=== PATIENT | male | born 1970 | race African-American/Black ===

== ENCOUNTER 2017-06-01 05:26 | Day surgery (SDC) | payer MEDICAID ==
[~2017-06-01] VITALS: Ht 162.6 cm; Wt 61.4 kg
[~2017-06-01 05:26] MED LIST: ACETIC ACID AU; ALEN70TA48 PO; ALUM AU; ASCO500 PO; ASPI-1093 PO; CARB-60 PO; DEXT1DRO8 OU; DOCU250C91 PO; FERR-89 PO; FOLI1 PO; LISI-662 PO; MELO-273 PO; MULT-248 PO; OS CAL PO; PHEN97.29 PO; PSYL0.4C2 PO; SORBITOL 70% PO; VIT D PO; VITA400T9 PO
[2017-06-01] MEDS ORDERED: RINGERS SOLUTION,LACTATED 1,000 ML IV ONE ×2 (05:58→09:00)
[2017-06-01 06:52] LABS: EOSINOPHILS % (AUTO) 5.9 % (1.0-6.0); HEMATOCRIT 36.4 % (41-53); HEMOGLOBIN 11.9 g/dL (13.5-17.5); LYMPHOCYTES % (AUTO) 12.6 % (22.0-44.0); MEAN CORPUSCULAR HEMOGLOBIN 25.7 pg (26.0-34.0); MEAN CORPUSCULAR HGB CONC 32.8 G/dL (31.0-37.0); MEAN CORPUSCULAR VOLUME 79 fL (80-100); MONOCYTES # (AUTO) 0.8 K/uL (0.1-1.0); MONOCYTES % (AUTO) 10.2 % (2.0-9.0); NEUTROPHILS # (AUTO) 5.3 K/uL (1.8-7.7); NEUTROPHILS % (AUTO) 70.3 % (40.0-70.0); PLATELET COUNT (AUTO) 297 K/uL (150-450); RED BLOOD CELL COUNT(AUTO) 4.64 MIL/uL (4.50-5.90); RED CELL DISTRIBUTION WIDTH 14.9 % (11.5-14.5); WHITE BLOOD COUNT (AUTO) 7.6 K/uL (4.5-11.0)
[2017-06-01 07:03] LABS: INR 1.2 (0.9-1.1); PROTHROMBIN TIME 12.2 SEC (9.4-11.6)
[2017-06-01 07:08] LABS: ALANINE AMINOTRANSFERASE 27 U/L (12-78); ALBUMIN 3.8 g/dL (3.4-5.0); ANION GAP 8 mmol/L (8-16); ASPARTATE AMINOTRANSFERASE 15 U/L (15-37); BILIRUBIN,TOTAL 0.4 mg/dL (0.1-1.0); CALCIUM, TOTAL 9.3 mg/dL (8.8-10.5); CARBON DIOXIDE 27 mmol/L (22-29); CHLORIDE 99 mmol/L (98-107); CREATININE 0.56 mg/dL (0.60-1.30); GLOMERULAR FILTR. RATE CALC > 60 mL/min (>60); PHENOBARBITAL 36 mcg/mL (15-40); POTASSIUM 4.1 mmol/L (3.5-5.1); SODIUM SERUM 134 mmol/L (136-145); TOTAL PROTEIN, SERUM 8.4 g/dL (6.4-8.2); UREA NITROGEN, BLOOD 10 mg/dL (7-18)
== END 2017-06-01 09:30 | disposition short-term general hospital (02) ==
LOC: SURGERY 05:26
PROVIDERS: ATTEND Dentist General Practice
DX: K05.6 Periodontal disease, unspecified (principal); Z53.8 Procedure and treatment not carried out for other reasons; R78.89 Finding of other specified substances, not normally found in blood; R94.31 Abnormal electrocardiogram [ECG] [EKG]; D64.9 Anemia, unspecified; I45.10 Unspecified right bundle-branch block; I10 Essential (primary) hypertension; Z79.01 Long term (current) use of anticoagulants
CPT/HCPCS: 36415; 71010; 80053; 80156; 80184; 85025; 85610; 85730; 93005; J7120

== ENCOUNTER 2018-03-06 06:16 | Day surgery (SDC) | payer OTHER ==
[~2018-03-06] VITALS: Ht 162.6 cm; Wt 61.4 kg
[~2018-03-06 06:16] MED LIST changes: +ACET650S27 PR; -ACETIC ACID AU; -ALUM AU; -ASPI-1093 PO; +BISA10S PR; +ESOM20CA31 PO; +FE RC; +GUAIF10 PO; +LEVO25TA9 PO; +MAG30ORA11 PO; -MELO-273 PO; +NEO/5DRO4 OU; -OS CAL PO; +OSCD250 PO; +PHEN118S38 PO; +PSEU60 PO; +RINGERS SOLUTION,LACTATED 1,000 ML IV ONE; -SORBITOL 70% PO; +SUCR1TAB PO; +TRAM50TA4 PO; -VIT D PO; +VITAD1000 PO; +[UNRECOGNIZED DRUG - CODE] AU; +[UNRECOGNIZED DRUG - CODE] PO; +[UNRECOGNIZED DRUG - CODE] PO; +[UNRECOGNIZED DRUG - CODE] PO; +[UNRECOGNIZED DRUG - OTHER] PO
[2018-03-06] MEDS ORDERED: ROCURONIUM BROMIDE 10 MG/ML 5 ML VIAL IVP ONE (06:17)
[2018-03-06] MEDS ORDERED: EPHEDrine SULFATE 50 MG/ML VIAL IM ONE (06:17)
[2018-03-06] MEDS ORDERED: 0.9% SODIUM CHLORIDE 10 ML VIAL IVP ONE (06:17)
[2018-03-06] MEDS ORDERED: PROPOFOL 1% 20 ML VIAL IVP ONE (06:17)
[2018-03-06 07:04] LABS: BASOPHILS % (AUTO) 1.1 % (0.0-2.0); EOSINOPHILS % (AUTO) 3.7 % (1.0-6.0); HEMATOCRIT 33.4 % (41-53); LYMPHOCYTES # (AUTO) 0.8 K/uL (1.0-4.8); LYMPHOCYTES % (AUTO) 12.9 % (22.0-44.0); MEAN CORPUSCULAR HEMOGLOBIN 25.5 pg (26.0-34.0); MEAN CORPUSCULAR HGB CONC 33.1 G/dL (31.0-37.0); MEAN CORPUSCULAR VOLUME 77 fL (80-100); MONOCYTES # (AUTO) 0.7 K/uL (0.1-1.0); MONOCYTES % (AUTO) 11.7 % (2.0-9.0); NEUTROPHILS # (AUTO) 4.1 K/uL (1.8-7.7); NEUTROPHILS % (AUTO) 70.6 % (40.0-70.0); PLATELET COUNT (AUTO) 274 K/uL (150-450); RED BLOOD CELL COUNT(AUTO) 4.34 MIL/uL (4.50-5.90); RED CELL DISTRIBUTION WIDTH 14.6 % (11.5-14.5)
[2018-03-06 07:15] LABS: ANION GAP 9 mmol/L (8-16); CALCIUM, TOTAL 9.5 mg/dL (8.8-10.5); CARBON DIOXIDE 26 mmol/L (22-29); CHLORIDE 99 mmol/L (98-107); GLOMERULAR FILTR. RATE CALC > 60 mL/min (>60); GLUCOSE,RANDOM 89 mg/dL (70-110); INR 1.1 (0.9-1.1); POTASSIUM 4.4 mmol/L (3.5-5.1); PROTHROMBIN TIME 11.3 SEC (9.4-11.6); SODIUM SERUM 134 mmol/L (136-145); UREA NITROGEN, BLOOD 15 mg/dL (7-18)
[2018-03-06 07:23] LABS: ALANINE AMINOTRANSFERASE 22 U/L (12-78); ALBUMIN 3.9 g/dL (3.4-5.0); ALKALINE PHOSPHATASE 121 U/L (46-116); ASPARTATE AMINOTRANSFERASE 13 U/L (15-37); BILIRUBIN,TOTAL 0.4 mg/dL (0.1-1.0); PHENOBARBITAL 43 mcg/mL (15-40); TOTAL PROTEIN, SERUM 9.3 g/dL (6.4-8.2)
[2018-03-06 07:32] LABS: CARBAMAZEPINE (TEGRETOL) 16.8 mcg/mL (4.0-12.0)
[2018-03-06] MEDS ORDERED: AMPICILLIN SODIUM 1 GM/VIAL ONE (10:04)
[2018-03-06] MEDS ORDERED: OXYMETAZOLINE HCL 0.05% 15 ML NASAL SPRAY NASAL ONE (10:11)
[2018-03-06] MEDS ORDERED: FentaNYL CITRATE-PF 100 MCG/2 ML VIAL IVP PRN ×3 (11:00)
[2018-03-06] MEDS ORDERED: MIDAZOLAM HCL 2 MG/2 ML VIAL IVP PRN (11:00)
[2018-03-06] MEDS ORDERED: ONDANSETRON HCL 4 MG/2 ML VIAL IVP PRN (11:00)
[2018-03-06] MEDS ORDERED: RINGERS SOLUTION,LACTATED 1,000 ML IV ONE (11:26)
[2018-03-06] MEDS ORDERED: FentaNYL CITRATE-PF 100 MCG/2 ML VIAL IVP ONE (12:00)
[2018-03-06] MEDS ORDERED: MIDAZOLAM HCL 2 MG/2 ML VIAL IVP ONE (12:00)
== END 2018-03-06 13:40 | disposition home or self-care (01) ==
LOC: SURGERY 06:16
PROVIDERS: ATTEND Dentist General Practice
DX: K05.30 Chronic periodontitis, unspecified (principal); F71 Moderate intellectual disabilities; G80.8 Other cerebral palsy; I10 Essential (primary) hypertension; K21.9 Gastro-esophageal reflux disease without esophagitis; C90.00 Multiple myeloma not having achieved remission; E03.9 Hypothyroidism, unspecified; E87.1 Hypo-osmolality and hyponatremia; I70.8 Atherosclerosis of other arteries; I44.0 Atrioventricular block, first degree; I45.19 Other right bundle-branch block; M19.90 Unspecified osteoarthritis, unspecified site; Z79.82 Long term (current) use of aspirin; Z79.01 Long term (current) use of anticoagulants; Z98.890 Other specified postprocedural states; Z79.899 Other long term (current) drug therapy
CPT/HCPCS: 36415; 41899; 71045; 80053; 80156; 80184; 85025; 85610; 85730; J0290; J2250; J2704; J3010; J3490 ×2; J7120

== ENCOUNTER 2018-05-01 05:10 | Day surgery (SDC) | payer MEDICAID ==
[~2018-05-01] VITALS: Ht 157.5 cm; Wt 55.5 kg
[~2018-05-01 05:10] MED LIST changes: -RINGERS SOLUTION,LACTATED 1,000 ML IV ONE
[2018-05-01] MEDS ORDERED: RINGERS SOLUTION,LACTATED 500 ML IV ONE ×2 (05:34→06:00)
[2018-05-01] MEDS ORDERED: TETRACAINE HCL/PF 0.5% 4 ML OPHTHALMIC SOLUTION ONE (05:34)
[2018-05-01] MEDS ORDERED: OFLOXACIN 0.3% 5 ML OPHTHALMIC SOLUTION ONE (05:35)
[2018-05-01] MEDS ORDERED: OFLOXACIN 0.3% 5 ML OPHTHALMIC SOLUTION OD ONE (06:00)
[2018-05-01] MEDS ORDERED: ACETAMINOPHEN 325 MG TABLET PO PRN (07:00)
[2018-05-01] MEDS ORDERED: TETRACAINE HCL/PF 0.5% 4 ML OPHTHALMIC SOLUTION OD ONE (07:00)
[2018-05-01] MEDS ORDERED: MitoMYcin 0.2 MG/VIAL KIT FOR OPHTHALMIC USE OD ONE (07:00)
[2018-05-01] MEDS ORDERED: MIDAZOLAM HCL 2 MG/2 ML VIAL IVP ONE (12:00)
[2018-05-01] MEDS ORDERED: FentaNYL CITRATE-PF 100 MCG/2 ML VIAL IVP ONE (12:00)
[2018-05-01] MEDS ORDERED: PROPOFOL 1% 20 ML VIAL IVP ONE (12:50)
[2018-05-01] MEDS ORDERED: LIDOCAINE HCL/PF 2% 5 ML VIAL INJ ONE (12:50)
[2018-05-01] MEDS ORDERED: EPHEDrine SULFATE 50 MG/ML VIAL IM ONE (12:50)
[2018-05-01] MEDS ORDERED: LIDOCAINE HCL 2%/EPI 1:200,000/PF 10 ML VIAL ONE (16:37)
[2018-05-01] MEDS ORDERED: PHENYLEPHRINE HCL 2.5% 2 ML OPHTHALMIC SOLUTION ONE (16:37)
[2018-05-01] MEDS ORDERED: POVIDONE-IODINE 10% 15 ML SOLUTION UD ONE (16:37)
[2018-05-01] MEDS ORDERED: NEOMYCIN/POLYMYXIN B/DEXAMETH 3.5 GM OPHTHALMIC OINTMENT ONE (16:37)
[2018-05-01] MEDS ORDERED: PrednisoLONE ACETATE 1% 5 ML OPHTHALMIC SUSPENSION ONE (16:37)
== END 2018-05-01 08:40 | disposition home or self-care (01) ==
LOC: SURGERY 05:10
PROVIDERS: ATTEND Ophthalmology
DX: H11.041 Peripheral pterygium, stationary, right eye (principal); I10 Essential (primary) hypertension; E03.9 Hypothyroidism, unspecified; M19.90 Unspecified osteoarthritis, unspecified site; K21.9 Gastro-esophageal reflux disease without esophagitis; G80.8 Other cerebral palsy; F71 Moderate intellectual disabilities; I45.19 Other right bundle-branch block; Z79.01 Long term (current) use of anticoagulants; Z79.82 Long term (current) use of aspirin; Z79.891 Long term (current) use of opiate analgesic; Z79.899 Other long term (current) drug therapy; Z98.890 Other specified postprocedural states
CPT/HCPCS: 65426; 88304; J2250; J2704; J3010; J3490 ×2; J7120

== ENCOUNTER 2019-04-18 05:31 | Day surgery (SDC) | payer OTHER, MEDICAID ==
[~2019-04-18] VITALS: Ht 162.6 cm; Wt 63.6 kg
[~2019-04-18 05:31] MED LIST changes: +ALEN70TA10 PO; -ALEN70TA48 PO
[2019-04-18] MEDS ORDERED: DEXAMETHASONE SOD PHOS 4 MG/ML VIAL IVP ONE (05:32)
[2019-04-18] MEDS ORDERED: ROCURONIUM BROMIDE 10 MG/ML 5 ML VIAL IVP ONE (05:32)
[2019-04-18] MEDS ORDERED: PROPOFOL 1% 20 ML VIAL IVP ONE (05:32)
[2019-04-18] MEDS ORDERED: ONDANSETRON HCL 4 MG/2 ML VIAL IVP ONE (05:32)
[2019-04-18] MEDS ORDERED: LIDOCAINE/PF 2% 5 ML VIAL IM ONE (05:32)
[2019-04-18] MEDS ORDERED: NEOSTIGMINE METHYLSULFATE 1 MG/ML 10 ML VIAL IVP ONE (05:32)
[2019-04-18] MEDS ORDERED: FentaNYL CITRATE-PF 100 MCG/2 ML VIAL IVP ONE (05:32)
[2019-04-18] MEDS ORDERED: RINGERS SOLUTION,LACTATED 1,000 ML IV ONE ×2 (06:00→06:30)
[2019-04-18 06:22] LABS: BASOPHILS % (AUTO) 0.9 % (0.0-2.0); EOSINOPHILS % (AUTO) 3.3 % (1.0-6.0); HEMATOCRIT 33.9 % (41-53); HEMOGLOBIN 10.9 g/dL (13.5-17.5); LYMPHOCYTES # (AUTO) 1.1 K/uL (1.0-4.8); LYMPHOCYTES % (AUTO) 11.7 % (22.0-44.0); MEAN CORPUSCULAR HEMOGLOBIN 24.3 pg (26.0-34.0); MEAN CORPUSCULAR HGB CONC 32.1 G/dL (31.0-37.0); MEAN CORPUSCULAR VOLUME 76 fL (80-100); MONOCYTES # (AUTO) 0.8 K/uL (0.1-1.0); MONOCYTES % (AUTO) 9.1 % (2.0-9.0); NEUTROPHILS # (AUTO) 6.8 K/uL (1.8-7.7); PLATELET COUNT (AUTO) 344 K/uL (150-450); RED BLOOD CELL COUNT(AUTO) 4.48 MIL/uL (4.50-5.90); RED CELL DISTRIBUTION WIDTH 14.5 % (11.5-14.5)
[2019-04-18 06:35] LABS: ANION GAP 9 mmol/L (8-16); CALCIUM, TOTAL 9.6 mg/dL (8.8-10.5); CARBON DIOXIDE 25 mmol/L (22-29); CHLORIDE 98 mmol/L (98-107); CREATININE 0.63 mg/dL (0.60-1.30); GLOMERULAR FILTR. RATE CALC > 60 mL/min (>60); GLUCOSE,RANDOM 83 mg/dL (70-110); POTASSIUM 4.1 mmol/L (3.5-5.1); SODIUM SERUM 132 mmol/L (136-145); UREA NITROGEN, BLOOD 14 mg/dL (7-18)
[2019-04-18 06:37] LABS: INR 1.1 (0.9-1.1); PROTHROMBIN TIME 11.1 SEC (9.4-11.6)
[2019-04-18] MEDS ORDERED: AMPICILLIN SODIUM 1 GM/VIAL ONE (08:00)
[2019-04-18] MEDS ORDERED: SUGAMMADEX SODIUM 200 MG/2 ML VIAL IVP ONE (08:38)
[2019-04-18] MEDS ORDERED: SODIUM CHLORIDE 0.9% 1,000 ML IV ONE ×2 (08:45→09:42)
[2019-04-18] MEDS ORDERED: SODIUM CHLORIDE 0.9% 100 ML ONE (09:07)
== END 2019-04-18 13:05 | disposition home or self-care (01) ==
LOC: SURGERY 05:31
PROVIDERS: ATTEND Dentist General Practice
DX: K05.30 Chronic periodontitis, unspecified (principal); K02.9 Dental caries, unspecified; I10 Essential (primary) hypertension; D64.9 Anemia, unspecified; E03.9 Hypothyroidism, unspecified; K21.9 Gastro-esophageal reflux disease without esophagitis; I69.954 Hemiplegia and hemiparesis following unspecified cerebrovascular disease affecting left non-dominant side; G40.909 Epilepsy, unspecified, not intractable, without status epilepticus; Z79.01 Long term (current) use of anticoagulants; Z98.890 Other specified postprocedural states
CPT/HCPCS: 36415; 41899; 71045; 80048; 85025; 85610; 85730; 93005; J0290; J1100; J2405; J2704; J3010; J3490 ×2; J7030; J7050; J7120

== ENCOUNTER 2022-11-24 06:24 | Day surgery (SDC) | payer OTHER, MEDICAID ==
[~2022-11-24] VITALS: Ht 162.6 cm; Wt 68.1 kg
[~2022-11-24 06:24] MED LIST changes: +ACET650S24 PR; -ACET650S27 PR; -ALEN70TA10 PO; +ALEN70TA65 PO; -BISA10S PR; +BISA10SU11 PR; +CHOL100018 PO; +DOCU-350 PO; -DOCU250C91 PO; -FE RC; -FERR-89 PO; +FERR325T27 PO; +FOLI-130 PO; -FOLI1 PO; -LISI-662 PO; +LISI-894 PO; +NA P266E RC; +PSEU-221 PO; -PSEU60 PO; +TRAM-559 PO; -TRAM50TA4 PO; -VITAD1000 PO; +[UNRECOGNIZED DRUG - CODE] PO; -[UNRECOGNIZED DRUG - CODE] PO
[2022-11-24] MEDS ORDERED: PROPOFOL 1% 20 ML VIAL IVP ONE (06:25)
[2022-11-24] MEDS ORDERED: ROCURONIUM BROMIDE 10 MG/ML 5 ML VIAL IVP ONE (06:25)
[2022-11-24] MEDS ORDERED: METOCLOPRAMIDE HCL 5 MG/ML 2 ML VIAL IVP ONE (06:25)
[2022-11-24] MEDS ORDERED: DEXAMETHASONE SOD PHOS 4 MG/ML VIAL IVP ONE (06:25)
[2022-11-24] MEDS ORDERED: LIDOCAINE/PF 2% 5 ML VIAL IM ONE (06:25)
[2022-11-24] MEDS ORDERED: ONDANSETRON HCL 4 MG/2 ML VIAL IVP ONE (06:25)
[2022-11-24] MEDS ORDERED: RINGERS SOLUTION,LACTATED 1,000 ML IV ONE ×2 (06:30→07:44)
[2022-11-24 07:21] LABS: COVID AG,FIA SOURCE NASAL SWAB
[2022-11-24] MEDS ORDERED: LEVE500T20 PO (08:16)
[2022-11-24] MEDS ORDERED: ARIP10TA38 PO (08:19)
[2022-11-24 08:56] LABS: ANION GAP 7 mmol/L (8-16); CALCIUM, TOTAL 9.2 mg/dL (8.8-10.5); CARBON DIOXIDE 24 mmol/L (22-29); CHLORIDE 103 mmol/L (98-107); CREATININE 0.55 mg/dL (0.60-1.30); GLOMERULAR FILTR. RATE CALC > 60 mL/min (>60); GLUCOSE,RANDOM 91 mg/dL (70-110); POTASSIUM 4.2 mmol/L (3.5-5.1); SODIUM SERUM 134 mmol/L (136-145); UREA NITROGEN, BLOOD 12 mg/dL (7-18)
[2022-11-24 09:01] LABS: ALANINE AMINOTRANSFERASE 26 U/L (12-78); ALBUMIN 3.5 g/dL (3.4-5.0); ALKALINE PHOSPHATASE 132 U/L (46-116); ASPARTATE AMINOTRANSFERASE 21 U/L (15-37); BILIRUBIN,TOTAL 0.2 mg/dL (0.1-1.0); TOTAL PROTEIN, SERUM 8.7 g/dL (6.4-8.2)
[2022-11-24 09:03] LABS: HEMATOCRIT 31.8 % (41-53); HEMOGLOBIN 10.4 g/dL (13.5-17.5); MEAN CORPUSCULAR HEMOGLOBIN 24.3 pg (26.0-34.0); MEAN CORPUSCULAR HGB CONC 32.6 G/dL (31.0-37.0); MEAN CORPUSCULAR VOLUME 74 fL (80-100); PLATELET COUNT (AUTO) 252 K/uL (150-450); RED BLOOD CELL COUNT(AUTO) 4.28 MIL/uL (4.50-5.90)
[2022-11-24 09:26] LABS: INR 1.1 (0.9-1.1); PROTHROMBIN TIME 11.9 SEC (9.4-11.6)
[2022-11-24 09:38] LABS: BAND NEUTROPHILS % (MANUAL) 3 % (0-5); LYMPHOCYTES % (MANUAL) 14 % (22-44); MONOCYTES % (MANUAL) 8 % (2-9); SEGMENTED NEUTROPHILS % 75 % (40-70)
[2022-11-24] MEDS ORDERED: AMPICILLIN SODIUM 2 GM/NS 100 ML IV ONE (10:09)
[2022-11-24] MEDS ORDERED: FentaNYL CITRATE PF 100 MCG/2 ML VIAL IVP PRN (14:15)
[2022-11-24] MEDS ORDERED: OXYGEN THERAPY IH SCH (20:00)
== END 2022-11-24 15:30 | disposition home or self-care (01) ==
LOC: SURGERY 06:24
PROVIDERS: ATTEND Dentist General Practice
DX: K02.9 Dental caries, unspecified (principal); K05.30 Chronic periodontitis, unspecified; G40.909 Epilepsy, unspecified, not intractable, without status epilepticus; K05.6 Periodontal disease, unspecified; D64.9 Anemia, unspecified; I10 Essential (primary) hypertension; K21.9 Gastro-esophageal reflux disease without esophagitis; M19.90 Unspecified osteoarthritis, unspecified site; Z98.890 Other specified postprocedural states; Z79.899 Other long term (current) drug therapy; G80.0 Spastic quadriplegic cerebral palsy; Z79.01 Long term (current) use of anticoagulants; Z20.822 Contact with and (suspected) exposure to COVID-19
CPT/HCPCS: 41899; 71045; 87426; 80053; 85007; 85027; 85610; 85730; 36415; 93005; J0290; J2704; J1100; J3490 ×2; J2765; J2405; J7120; C9803

== ENCOUNTER 2024-10-17 05:55 | Day surgery (SDC) | payer OTHER, MEDICAID ==
[~2024-10-17] VITALS: Ht 162.6 cm; Wt 68.1 kg
[~2024-10-17 05:55] MED LIST changes: +ARIP10TA38 PO; -DOCU-350 PO; +DOCU-412 PO; +GUAI100L96 PO; -GUAIF10 PO; +LEVE-71 PO; +SORB30SO2 PO; -SUCR1TAB PO; +SUCR1TAB2 PO; -TRAM-559 PO; -[UNRECOGNIZED DRUG - CODE] PO
[2024-10-17] MEDS ORDERED: AMPICILLIN SODIUM 2 GM/NS 100 ML IV ONE (07:25)
[2024-10-17 07:43] LABS: BASOPHILS % (AUTO) 1.4 % (0.0-2.0); EOSINOPHILS % (AUTO) 7.3 % (1.0-6.0); HEMATOCRIT 34.4 % (41-53); HEMOGLOBIN 10.9 g/dL (13.5-17.5); LYMPHOCYTES # (AUTO) 0.7 K/uL (1.0-4.8); MEAN CORPUSCULAR HGB CONC 31.8 G/dL (31.0-37.0); MEAN CORPUSCULAR VOLUME 82 fL (80-100); MONOCYTES # (AUTO) 0.8 K/uL (0.1-1.0); MONOCYTES % (AUTO) 17.4 % (2.0-9.0); NEUTROPHILS # (AUTO) 2.8 K/uL (1.8-7.7); NEUTROPHILS % (AUTO) 58.9 % (40.0-70.0); PLATELET COUNT (AUTO) 140 K/uL (150-450); RED CELL DISTRIBUTION WIDTH 15.2 % (11.5-14.5); WHITE BLOOD COUNT (AUTO) 4.8 K/uL (4.5-11.0)
[2024-10-17 07:51] LABS: ANION GAP 4 mmol/L (8-16); CARBON DIOXIDE 28 mmol/L (22-29); CHLORIDE 104 mmol/L (98-107); CREATININE 0.55 mg/dL (0.60-1.30); GLOMERULAR FILTR. RATE CALC > 60 mL/min (>60); GLUCOSE,RANDOM 96 mg/dL (70-110); POTASSIUM 3.9 mmol/L (3.5-5.1); SODIUM SERUM 136 mmol/L (136-145); UREA NITROGEN, BLOOD 12 mg/dL (7-18)
[2024-10-17 07:57] LABS: ALANINE AMINOTRANSFERASE 33 U/L (12-78); ALBUMIN 3.5 g/dL (3.4-5.0); ALKALINE PHOSPHATASE 175 U/L (46-116); ASPARTATE AMINOTRANSFERASE 16 U/L (15-37); BILIRUBIN,TOTAL 0.4 mg/dL (0.1-1.0); TOTAL PROTEIN, SERUM 6.6 g/dL (6.4-8.2)
[2024-10-17] MEDS ORDERED: ACYC-138 PO (08:12)
[2024-10-17] MEDS ORDERED: ASPI-1450 PO (08:12)
[2024-10-17] MEDS ORDERED: FAMO20 PO (08:12)
[2024-10-17] MEDS ORDERED: LACT1CAP58 PO (08:14)
[2024-10-17] MEDS ORDERED: PANT-31 PO (08:14)
[2024-10-17] MEDS ORDERED: LENA15CA PO (08:14)
[2024-10-17 08:22] LABS: PROTHROMBIN TIME 12.3 SEC (9.4-11.6)
[2024-10-17] MEDS: RINGERS SOLUTION,LACTATED 1,000 ML IV ONE (08:26)
[2024-10-17] MEDS ORDERED: EPHEDrine SULFATE 50 MG/ML VIAL IM ONE (12:00)
[2024-10-17] MEDS ORDERED: LIDOCAINE/PF 2% 5 ML VIAL IM ONE (12:00)
[2024-10-17] MEDS ORDERED: PROPOFOL 1% 20 ML VIAL IVP ONE (12:00)
[2024-10-17] MEDS ORDERED: DEXAMETHASONE SOD PHOS 4 MG/ML VIAL IVP ONE (12:00)
[2024-10-17] MEDS ORDERED: 0.9% SODIUM CHLORIDE 10 ML VIAL IVP ONE (12:00)
[2024-10-17] MEDS ORDERED: ROCURONIUM BROMIDE 10 MG/ML 5 ML VIAL IVP ONE (12:00)
[2024-10-17] MEDS ORDERED: SUGAMMADEX SODIUM 200 MG/2 ML VIAL IVP ONE (12:00)
[2024-10-17] MEDS ORDERED: ONDANSETRON HCL 4 MG/2 ML VIAL IVP ONE (12:00)
== END 2024-10-17 10:40 | disposition home or self-care (01) ==
LOC: SURGERY 05:55
PROVIDERS: ATTEND Dentist General Practice
DX: K02.9 Dental caries, unspecified (principal); K05.30 Chronic periodontitis, unspecified; D64.9 Anemia, unspecified; G80.9 Cerebral palsy, unspecified; K21.9 Gastro-esophageal reflux disease without esophagitis; M19.90 Unspecified osteoarthritis, unspecified site; I10 Essential (primary) hypertension; G40.909 Epilepsy, unspecified, not intractable, without status epilepticus; Z79.01 Long term (current) use of anticoagulants
CPT/HCPCS: 41899; 71045; 80053; 85025; 85610; 85730; 36415; 93005; J0290; J2704; J1100; J3490 ×4; J2405; Z7610